=== PATIENT | male | born 1995 | race Caucasian/White ===

== ENCOUNTER 2020-12-11 20:02 | Emergency (ER) | payer OTHER ==
[~2020-12-11] VITALS: Ht 170.2 cm; Wt 58.0 kg
--- NOTE | 2020-12-11 20:13 | PHYS DOC ---
General Adult EDM: Chief Complaint: ABDOMINAL PAIN HPI: HPI: ".. I started getting sick last week.. stomach and abdomen pain.. some cough.. My girl friend tested + for COVID.. I got checked and I was negative... I just not beter.. more pain in lower abd. now..." Patient is a 25 year old male who presents with above hx and complaints of abdomen pain. Pain initially was generalized now more epigastric and right lower quadrant. Patient denies any trauma. Patient denies any recent travel outside [facility] area. He has been exposed to his girlfriend who has tested positive for Covid. Patient has not had a Covid vaccination. Patient rates his pain as 8 out of 10 on his right lower quadrant. Patient denies any intake of bad food. Patient reports he has had a normal stool today. Patient does not follow primary care. Review of Systems: Review of Systems: Constitutional: History of subjective fever and chills Eyes: Denies change in visual acuity HENT: Denies nasal congestion or sore throat Respiratory: History of cough and wheezing h Cardiovascular: Denies chest pain or edema GI: Complains of generalized abdominal pain, nausea,. Denies vomiting, bloody stools or diarrhea : Denies dysuria Musculoskeletal: Denies back pain or joint pain Integument: Denies rash Neurologic: Denies headache, focal weakness or sensory changes Endocrine: Denies polyuria or polydipsia Lymphatic: Denies swollen glands Psychiatric: Denies depression or anxiety Family History: Family History: Noncontributory to presentation Current Medications: Current Meds: See nursing for home meds Allergies: Allergies: Allergies penicillin Physical Exam: PE: Constitutional: Well developed, well nourished, moderate acute distress, non-toxic appearance. [] HENT: Normocephalic, atraumatic, bilateral external ears normal, oropharynx dry, no oral exudates, nose normal. [] Eyes: PERRLA, EOMI, conjunctiva normal, no discharge. [] Neck: Normal range of motion, no tenderness, supple, no stridor. [] Cardiovascular: Tachycardia heart rate regular rhythm, no murmur [] Lungs & Thorax: Bilateral breath sounds clear to auscultation [] Abdomen: Bowel sounds hyperactive, soft, gastric and right lower quadrant tenderness, no masses, no pulsatile masses. Normal male anatomy. Testicles descended. Mild rebound to right mid abdomen Skin: Warm, dry, no erythema, no rash. [] Back: No tenderness, no CVA tenderness. [] Extremities: No tenderness, no cyanosis, no clubbing, ROM intact, no edema. Mild psoas right. Neurologic: Alert and oriented X 3, normal motor function, normal sensory function, no focal deficits noted. [] Psychologic: Affect anxious, judgement normal, mood normal. [] EKG: EKG: [] Radiology/Procedures: Radiology/Procedures: [[address] [address] IMAGING REPORT Signed PATIENT: SEBASTIAN PANG ACCOUNT: [id number] : 1995 LOCATION: ER AGE: 25 SEX: M EXAM STATUS: REG ER ORD. PHYSICIAN: ARYA MONTALVO MD REASON: hematuria, abd. pain. PROCEDURE: CT ABDOMEN PELVIS WO CONTRAST Exam: CT of abdomen and pelvis without contrast INDICATION: Hematuria TECHNIQUE: Sequential axial images through the abdomen and pelvis obtained without IV contrast. Sagittal and coronal reformatted images were reconstructed from the axial data and reviewed. Exposure: One or more of the following in the visualized dose reduction techniques were utilized for this examination: 1. Automated exposure control 2. Adjustment of the MA and/or KV according to patient size 3. Use of iterative of reconstructive technique Comparisons: None FINDINGS: Heart size is normal. No pericardial effusion. Visualized lung bases are clear. No pleural effusion. Liver, spleen, pancreas, gallbladder and adrenals are unremarkable. No perinephric inflammation or hydronephrosis. No renal or ureteral calculi are identified. Bladder is decompressed not well evaluated. Prostate is not enlarged. There is a focal segment of diffuse wall thickening involving the small bowel seen in the pelvis series 2 image 93. Adjacent reactive lymphadenopathy is noted. Remainder of the large and small bowel are unremarkable. Small amount of free fluid noted in the pelvis. Abdominal aorta has a normal course and caliber. No other enlarged intra-abdominal lymph nodes are identified. No suspicious osseous lesions or acute fractures. IMPRESSION: 1. Short segment of diffuse significant wall thickening involving the distal ileum in the lower abdomen with adjacent inflammatory changes and reactive lymphadenopathy. Findings are nonspecific and could relate to a severe enteritis. There appears to be a focal outpouching in this area. A Meckel's diverticulitis is possible. 2. Small amount of free fluid noted in the pelvis, likely reactive. 3. Mild wall thickening at the bladder which also could be reactive. Correlate with urinalysis for cystitis. Electronically signed by: Brandi Martin MD (12/11/2020 10:30 PM) [facility] DICTATED AND SIGNED BY: BRANDI MARTIN MD DATE: 12/11/202219 CC: ARYA MONTALVO MD; PCP,NO ~MTH0 0 ][place] [address] IMAGING REPORT Signed PATIENT: SEBASTIAN PANG ACCOUNT: [id number] : 1995 LOCATION: ER AGE: 25 SEX: M EXAM STATUS: REG ER ORD. PHYSICIAN: ARYA MONTALVO MD REASON: pain PROCEDURE: ACUTE ABDOMEN SERIES ACUTE ABDOMEN SERIES History: Pain. Comparison: None. Findings: Frontal chest and supine and upright views of the abdomen. Cardiomediastinal silhouette is normal. There is no pleural effusion or pneumothorax. The lungs are clear. No pneumoperitoneum is identified. No dilated air-filled loops of bowel are se en. There is mild stool in the colon. Bowel gas pattern is nonobstructive. No obvious organomegaly. Mild left convexity lumbar rotoscoliosis. Tiny phlebolith left pelvis. IMPRESSION: 1. No acute cardiopulmonary process. 2. Nonobstructive bowel gas pattern. Electronically signed by: Nathan Escamilla MD (12/11/2020 9:23 PM) [facility] DICTATED AND SIGNED BY: NATHAN ESCAMILLA MD DATE: 12/11/202120 CC: ARYA MONTALVO MD; PCP,NO ~MTH0 0 Heart Score: C/O Chest Pain: N/A Risk Factors: Risk Factors: DM, Current or recent (<one month) smoker, HTN, HLP, family history of CAD, obesity. Risk Scores: Score 0 - 3: 2.5% MACE over next 6 weeks - Discharge Home Score 4 - 6: 20.3% MACE over next 6 weeks - Admit for Clinical Observation Score 7 - 10: 72.7% MACE over next 6 weeks - Early Invasive Strategies Course & Med Decision Making: Course & Med Decision Making Pertinent Labs and Imaging studies reviewed. (See chart for details) Patient remain on clear fluid diet only for the next 48 hours. No solids. No milk products. Must allow bowel rest. Follow-up primary care. Reexam if no improvement. Consider CT with contrast if known provement. Follow-up primary care. Tylenol and ibuprofen for pain. Push fluids. Patient take Pepcid 20 mg twice a day. Return if any concerns. Impression: 1. Abdomen Pain 2. Viral syndrome. 3. Mild elevation in bili 2.8 4. Elevated lipase 402 [] Dragon Disclaimer: Dragon Disclaimer: This electronic medical record was generated, in whole or in part, using a voice recognition dictation system. Departure Departure: Referrals: PCP,NO (PCP) Scripts Famotidine (PEPCID) 20 Mg Tablet 20 MG PO BID for GERD for 30 Days, #60 TAB Prov: ARYA MONTALVO MD 12/11/20 Radha Disclaimer This chart was dictated in whole or in part using Voice Recognition software in a busy, high-work load, and often noisy Emergency Department environment. It may contain unintended and wholly unrecognized errors or omissions. ARYA MONTALVO MD Dec 11, 2020 20:13
[2020-12-11] MEDS ORDERED: ONDANSETRON PF 4 MG/2 ML VIAL. IVP ONE (20:30)
[2020-12-11] MEDS ORDERED: FAMOTIDINE 20 MG/2 ML VIAL IVP ONE (20:30)
[2020-12-11] MEDS ORDERED: KETOROLAC 30 MG/ML VIAL. IVP ONE (20:30)
[2020-12-11] MEDS ORDERED: MAGNESIUM HYDROXIDE 2,400 MG/30 ML ORAL.SUSP. PO ONE (20:30)
[2020-12-11] MEDS ORDERED: IV RINGERS SOLUTION,LACTATED 1,000 ML IV SCH (20:30)
[2020-12-11 21:10] VITALS: BP 121/72
--- NOTE | 2020-12-11 21:26 | RAD ---
ACUTE ABDOMEN SERIES History: Pain. Comparison: None. Findings: Frontal chest and supine and upright views of the abdomen. Cardiomediastinal silhouette is normal. There is no pleural effusion or pneumothorax. The lungs are clear. No pneumoperitoneum is identified. No dilated air-filled loops of bowel are seen. There is mild stool in the colon. Bowel gas pattern is nonobstructive. No obvious organomegaly. Mild left convexity lumbar rotoscoliosis. Tiny phlebolith left pelvis. IMPRESSION: 1. No acute cardiopulmonary process. 2. Nonobstructive bowel gas pattern. Electronically signed by: Nathan Escamilla MD (12/11/2020 9:23 PM) [facility]
[2020-12-11 21:35] LABS: BASO % 0 % (0-3); EOS # 0.1 x10^3/uL (0.0-0.7); EOS % 1 % (0-3); HEMOGLOBIN 15.6 g/dL (13.0-17.5); LYMPH # 2.4 x10^3/uL (1.0-4.8); LYMPH % 24 % (24-48); MEAN CORPUSCULAR HEMOGLOBIN 29 pg (25-35); MEAN CORPUSCULAR HGB CONC 35 g/dL (31-37); MEAN CORPUSCULAR VOLUME 85 fL (79-100); MONO # 0.7 x10^3/uL (0.0-1.1); MONO % 7 % (0-9); NEUT % 68 % (31-73); PLATELET COUNT 203 x10^3/uL (140-400); WHITE BLOOD COUNT 10.3 x10^3/uL (4.0-11.0)
[2020-12-11 21:48] LABS: BACTERIA,URINE 0 /HPF (0-FEW); BILIRUBIN,URINE NEG (NEG); CLARITY,URINE CLEAR; COLOR,URINE YELLOW; GLUCOSE,URINE NEG (NEG); NITRITE,URINE NEG (NEG); RBC,URINE 0 /HPF (0-2); UROBILINOGEN,URINE 0.2 mg/dL (0.2 mg/dL); WBC,URINE 0 /HPF (0-4)
[2020-12-11 21:51] LABS: CALCIUM 8.9 mg/dL (8.5-10.1); CREATININE 0.9 mg/dL (0.7-1.3); GFR 104.6; POTASSIUM 4.5 mmol/L (3.5-5.1)
[2020-12-11 21:57] LABS: BARBITURATES NEG (NEG); BENZODIAZEPINES NEG (NEG); CANNABINOIDS NEG (NEG); COCAINE NEG (NEG); DIRECT BILIRUBIN 0.2 mg/dL (0.0-0.2); METHADONE NEG (NEG); OPIATES NEG (NEG); PHENCYCLIDINE NEG (NEG); TOTAL BILIRUBIN 2.8 mg/dL (0.2-1.0); TOTAL PROTEIN 7.1 g/dL (6.4-8.2)
[2020-12-11 22:02] LABS: AMPHETAMINE/METHAMPHETAMINE NEG (NEG)
--- NOTE | 2020-12-11 22:33 | RAD ---
Exam: CT of abdomen and pelvis without contrast INDICATION: Hematuria TECHNIQUE: Sequential axial images through the abdomen and pelvis obtained without IV contrast. Sagit daniel and coronal reformatted images were reconstructed from the axial data and reviewed. Exposure: One or more of the following in the visualized dose reduction techniques were utilized for this examination: 1. Automated exposure control 2. Adjustment of the MA and/or KV according to patient size 3. Use of iterative of reconstructive technique Comparisons: None FINDINGS: Heart size is normal. No pericardial effusion. Visualized lung bases are clear. No pleural effusion. Liver, spleen, pancreas, gallbladder and adrenals are unremarkable. No perinephric inflammation or hydronephrosis. No renal or ureteral calculi are identified. Bladder is decompressed not well evaluated. Prostate is not enlarged. There is a focal segment of diffuse wall thickening involving the small bowel seen in the pelvis seri es 2 image 93. Adjacent reactive lymphadenopathy is noted. Remainder of the large and small bowel are unremarkable. Small amount of free fluid noted in the pelvis. Abdominal aorta has a normal course and caliber. No other enlarged intra-abdominal lymph nodes are identified. No suspicious osseous lesions or acute fractures. IMPRESSION: 1. Short segment of diffuse significant wall thickening involving the distal ileum in the lower abdo men with adjacent inflammatory changes and reactive lymphadenopathy. Findings are nonspecific and cou ld relate to a severe enteritis. There appears to be a focal outpouching in this area. A Meckel's div erticulitis is possible. 2. Small amount of free fluid noted in the pelvis, likely reactive. 3. Mild wall thickening at the bladder which also could be reactive. Correlate with urinalysis for c ystitis. Electronically signed by: Brandi Anguiano MD (12/11/2020 10:30 PM) [facility]
[2020-12-11] MEDS ORDERED: FAMO-63 PO (23:46)
== END 2020-12-12 00:06 | disposition home or self-care (01) ==
LOC: ER 20:02
DX: B34.9 Viral infection, unspecified (principal); E80.6 Other disorders of bilirubin metabolism; R74.8 Abnormal levels of other serum enzymes; Z20.822 Contact with and (suspected) exposure to COVID-19; Z88.0 Allergy status to penicillin
CPT/HCPCS: 36415; 74022; 74176; 80048; 80076; 80307; 81001; 82150; 83690; 84484; 85025; 96361; 96374; 96375; 99285; C9803; J1885; J2405; J3490; J7120; U0003

== ENCOUNTER 2020-12-24 01:18 | Emergency (ER) | payer OTHER ==
[~2020-12-24] VITALS: Ht 170.2 cm; Wt 60.5 kg
[~2020-12-24 01:18] MED LIST: FAMO-63 PO
[2020-12-24] MEDS ORDERED: CIPR500T94 PO (01:37)
[2020-12-24] MEDS ORDERED: CLIN150C16 PO (01:37)
[2020-12-24] MEDS ORDERED: MUPI22OI2 TP (01:37)
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
[2020-12-24] MEDS ORDERED: IBUPROFEN 400 MG TABLET. PO ONE (01:47)
[2020-12-24] MEDS ORDERED: NEOMY/BACITR/POLYMYXIN OINT PACKET. TP ONE (02:00)
[2020-12-24] MEDS ORDERED: DIPH,PERTUSS(ACELL),TET VAC/PF 0.5 ML SYRINGE. VAX IM ONE (02:00)
[2020-12-24] MEDS ORDERED: LIDOCAINE 2%/EPI 1:100,000 20 ML VIAL. IJ ONE (02:00)
[2020-12-24] MEDS ORDERED: CLINDAMYCIN HCL 150 MG CAPSULE PO ONE (02:00)
[2020-12-24] MEDS ORDERED: IBUPROFEN 600 MG TABLET. PO ONE (02:00)
[2020-12-24] MEDS ORDERED: CIPROFLOXACIN HCL 500 MG TABLET PO ONE (02:00)
[2020-12-24 02:40] VITALS: BP 146/88
== END 2020-12-24 02:45 | disposition home or self-care (01) ==
LOC: ER 01:18 → EEVIPCON 01:18 → ER 02:45
DX: S01.81XA Laceration without foreign body of other part of head, initial encounter (principal); S51.852A Open bite of left forearm, initial encounter; Z88.0 Allergy status to penicillin; Y04.1XXA Assault by human bite, initial encounter; Y93.89 Activity, other specified; Y92.89 Other specified places as the place of occurrence of the external cause; Y99.8 Other external cause status
CPT/HCPCS: 12013; 90471; 90715; 99283-25